=== PATIENT | male | born 1960 | race Two or more races ===

== ENCOUNTER 2021-09-15 08:41 | Emergency (ER) | payer OTHER ==
[~2021-09-15] VITALS: Ht 172.7 cm; Wt 75.7 kg
[~2021-09-15 08:41] MED LIST: AMLO-489 OR; BENA20TA14 OR; GABA300C10 OR; GEMF-19 OR; INSLANTI SC; METF-372 OR; OMEP20TA44 OR; PIOG30TA28 OR
[2021-09-15 09:47] VITALS: BP 169/76
== END 2021-09-15 10:33 | disposition home or self-care (01) ==
LOC: ER 08:41
DX: H53.8 Other visual disturbances (principal); I10 Essential (primary) hypertension; E11.9 Type 2 diabetes mellitus without complications; K21.9 Gastro-esophageal reflux disease without esophagitis; E78.5 Hyperlipidemia, unspecified; Z86.69 Personal history of other diseases of the nervous system and sense organs; Z90.49 Acquired absence of other specified parts of digestive tract; Z79.4 Long term (current) use of insulin; Z79.899 Other long term (current) drug therapy
CPT/HCPCS: 70450; 82962

== ENCOUNTER 2023-07-02 09:18 | Emergency (ER) | payer OTHER ==
[~2023-07-02] VITALS: Ht 165.1 cm; Wt 74.0 kg
[~2023-07-02 09:18] MED LIST changes: -AMLO-489 OR; +AMLO1TAB22 OR; +BENA-36 OR; -BENA20TA14 OR; +GABA-1250 OR; -GABA300C10 OR; -GEMF-19 OR; +GEMF-66 OR
[2023-07-02 10:20] LABS: Basophils # (auto) 0.1 10 ^3/uL (0-0.2); Basophils % (auto) 1.1 % (0.0-2.0); Eosinophils # (auto) 0.2 10 ^3/uL (0-0.8); Hematocrit 38.8 % (41.0-53.0); Hemoglobin 13.5 g/dL (13.5-17.5); Lymphocytes # (auto) 1.9 10 ^3/uL (0.4-5.4); Lymphocytes % (auto) 35.5 % (10.0-50.0); Mean Corpuscular Hemoglobin 31.2 pg (28.0-32.0); Mean Corpuscular Volume 89.2 fL (80.0-100.0); Monocytes # (auto) 0.4 10 ^3/uL (0-1.3); Monocytes % (auto) 8.3 % (0.0-12.0); Neutrophils # (auto) 2.7 10 ^3/uL (1.6-8.6); Neutrophils % (auto) 52.1 % (37.0-80.0); Red Blood Cells 4.35 10^6/uL (4.5-5.90); Red Cell Distribution Width 12.8 % (11.8-14.3); White Blood Cell 5.2 10^3/uL (4.4-10.8)
[2023-07-02 10:34] LABS: Alanine Aminotransferase 34 U/L (7-40); Albumin 4.8 g/dL (3.2-4.8); Alkaline Phosphatase 112 U/L (46-116); Anion Gap 8 (5-15); Aspartate Aminotransferase 28 U/L (13-40); BUN/Creatinine Ratio 11.3 (10.0-20.0); Bilirubin, Total 1.5 mg/dL (0.2-1.0); Blood Urea Nitrogen 35 mg/dL (9-23); Calcium 10.4 mg/dL (8.5-10.1); Carbon Dioxide 30 mmol/L (20-30); Chloride 100 mmol/L (98-107); Glucose 127 mg/dL (74-106); Potassium 4.4 mmol/L (3.5-5.1); Sodium 138 mmol/L (136-145); Total Protein 7.7 g/dL (5.7-8.2)
[2023-07-02 10:43] LABS: Urine Epithelial Cast None Seen /hpf (<5)
[2023-07-02 11:12] LABS: Urine Bacteria NONE SEEN /hpf (None Seen); Urine Blood Negative /uL (Negative); Urine Clarity Clear (Clear); Urine Color Yellow (Yellow); Urine Protein, UAD 2+ (Negative); Urine Specific Gravity 1.011 (1.001-1.035); Urine Urobilinogen Normal (Negative); Urine WBC 1 /hpf (0 - 3)
[2023-07-02 11:22] LABS: Lipase 80 U/L (12-53)
[2023-07-02] MEDS ORDERED: ONDANSETRON HCL 4 MG/2 ML VIAL IV ONE (11:30)
[2023-07-02] MEDS ORDERED: MORPHINE SULFATE INJ 2 MG/ml SYRG IV ONE (11:30)
[2023-07-02] MEDS ORDERED: POLY335015 PO (17:15)
[2023-07-02] MEDS ORDERED: GLYC2SUP16 RE (17:18)
[2023-07-02] MEDS ORDERED: DOCU250C67 PO (17:22)
[2023-07-02] MEDS ORDERED: POLYETHYLENE GLYCOL 17 GM PWDR PO ONE (17:30)
[2023-07-02] MEDS ORDERED: DOCUSATE SOD 100 MG CAP PO ONE (17:30)
[2023-07-02] MEDS ORDERED: SODIUM CHLORIDE 0.9% 1,000 ML IV ONE (17:45)
[2023-07-02] MEDS ORDERED: SODIENE12 RE (17:57)
[2023-07-02 18:20] VITALS: BP 153/63; PULSE 56; RESP 18; TEMP 96.7; O2SAT 98
== END 2023-07-02 19:25 | disposition home or self-care (01) ==
LOC: ER 09:18
DX: R00.1 Bradycardia, unspecified (principal); E11.22 Type 2 diabetes mellitus with diabetic chronic kidney disease; I12.9 Hypertensive chronic kidney disease with stage 1 through stage 4 chronic kidney disease, or unspecified chronic kidney disease; N18.9 Chronic kidney disease, unspecified; K21.9 Gastro-esophageal reflux disease without esophagitis; E78.5 Hyperlipidemia, unspecified
CPT/HCPCS: 36415; 74176; 76705; 80053; 81001; 82150; 83690; 84484; 85025; 96360; 99284; J7030; J2405

== ENCOUNTER 2023-12-23 07:53 | Emergency (ER) | payer OTHER ==
[~2023-12-23] VITALS: Ht 165.1 cm; Wt 72.0 kg
[~2023-12-23 07:53] MED LIST changes: +DOCU250C67 PO; +GLYC2SUP16 RE; +POLY335015 PO; +SODIENE12 RE
[2023-12-23 08:22] VITALS: BP 183/77; PULSE 63; RESP 18; TEMP 98; O2SAT 98
== END 2023-12-23 09:11 | disposition home or self-care (01) ==
LOC: ER 07:53
DX: H53.141 Visual discomfort, right eye (principal); I12.9 Hypertensive chronic kidney disease with stage 1 through stage 4 chronic kidney disease, or unspecified chronic kidney disease; E11.22 Type 2 diabetes mellitus with diabetic chronic kidney disease; N18.9 Chronic kidney disease, unspecified; K21.9 Gastro-esophageal reflux disease without esophagitis; E78.5 Hyperlipidemia, unspecified; Z90.49 Acquired absence of other specified parts of digestive tract